=== PATIENT | male | born 1935 | race Caucasian/White ===

== ENCOUNTER → 2020-05-24 | Outpatient (CLI) | payer MEDICARE ==
[~2020-05-24] MED LIST: NOHOMEMEDICATIONS
== END ==
LOC: LAB 10:01
PROVIDERS: ATTEND Student in an Organized Health Care Education/Training Program
DX: Z01.812 Encounter for preprocedural laboratory examination (principal); Z11.59 Encounter for screening for other viral diseases

== ENCOUNTER 2020-05-27 06:08 | Day surgery (SDC) | payer MEDICARE ==
[~2020-05-27] VITALS: Ht 175.3 cm; Wt 90.7 kg
[2020-05-27 07:00] VITALS: BP 149/79
--- NOTE | 2020-05-31 06:16 | O ---
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 PROCEDURE: Bilateral lower lid ectropion repair with left-sided transconjunctival lower lid and cheek lift. SURGEON: Darrick Boston MD. CHILD AND FAMILY SERVICES WORKER: None. ANESTHESIA: MAC. COMPLICATIONS: None. 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 In addition, he has left lower lid retraction with lagophthalmos. He presents today for a bilateral lower lid ectropion repair done in conjunction with a transconjunctival left lower lid and cheek lift. Informed consent was obtained to include but not limited to the potential risk for loss of vision, bleeding, infection, failure to improve the problem, the potential need for further surgery or treatment. DESCRIPTION OF PROCEDURE: The patient was taken to the operating room where 2% Xylocaine with epinephrine mixed with equal parts of 0.75% Marcaine with Wydase was administered transcutaneously and transconjunctivally to each lower lid, lateral canthus and the left cheek and left infratemporal fossa. The left medial canthus was similarly anesthetized. The patient was subsequently prepped and draped in the usual sterile fashion. The left lateral canthus was then clamped with a Rajeev clamp. A sharp canthotomy and cantholysis was then performed. Hemostasis was re-achieved with diligent pinpoint monopolar cautery as it was throughout the case. The tarsal [address] [address] OPERATIVE REPORT Name: KHARI WOOD Room #: DEP [facility].#: [id number] Admission: 05/27/20 Attend Phys: Darrick Boston MD Discharge: 05/27/20 Date of : 39 Report #: [id number] strip was then prepared laterally removing the lash bearing portion of the redundant lid margin and the redundant tarsal plate. Attention was then turned away from the ectropion repair and towards the left lower lid and cheek lift. An incision was then made below the inferior border of the tarsal plate on the left side down into the premalar space. The dissection was carried out both with sharp and blunt dissection staying anterior to the periosteum. Hemostasis was then re-achieved. The lower lid and cheek tissues were then elevated and resuspended with interrupted mattress 5-0 chromic sutures. The lower lid and cheek elevated well. Attention was then turned away from the lower lid and cheek lift back to completion of the ectropion repair on the left side. The tarsal strip was then secured to the internal portion of the lateral orbital tubercle with interrupted 5-0 Prolene sutures. The subcutaneous structures and the skin were then closed with interrupted 6-0 plain gut sutures. The right lateral canthus was then clamped with a Aguiar clamp. A sharp canthotomy and cantholysis was then performed. The tarsal strip was then prepared removing the lash bearing portion of the redundant lid margin and the redundant tarsal plate. The tarsal strip was then secured to the internal portion of the lateral orbital tubercle with interrupted 5-0 Prolene sutures. The subcutaneous structures and the skin were then closed with interrupted 6-0 plain gut sutures. The wounds were then cleaned and dressed with erythromycin ophthalmic ointment. The patient subsequently transported to the recovery area having tolerated the procedures well with no anesthetic or operative complications being noted. <ELECTRONICALLY SIGNED> By: Darrick Boston MD 05/31/20 0616 [id number] Darrick Boston MD /nt
== END 2020-05-27 08:20 | disposition home or self-care (01) ==
LOC: OR 06:08 → TBA 06:10 → OR 08:20
PROVIDERS: ATTEND Ophthalmology
DX: H02.105 Unspecified ectropion of left lower eyelid (principal); H02.102 Unspecified ectropion of right lower eyelid; H02.535 Eyelid retraction left lower eyelid; H18.9 Unspecified disorder of cornea; H02.205 Unspecified lagophthalmos left lower eyelid; Z98.890 Other specified postprocedural states; Z79.899 Other long term (current) drug therapy; Z87.891 Personal history of nicotine dependence; Z85.828 Personal history of other malignant neoplasm of skin; Z85.46 Personal history of malignant neoplasm of prostate; Z96.652 Presence of left artificial knee joint
CPT/HCPCS: 50010; 50101; 50386; 50398; 51636; 56527; 56531; 62110; 62850; 70005